=== PATIENT | male | born 1930 | race Caucasian/White ===

== ENCOUNTER 2016-10-28 07:33 | Inpatient (IN) | payer MEDICARE, BC ==
--- NOTE | ~2016-10-28 | OP ---
Record Of Operation [facility] [address] [place]. [address] NAME: MARLEY LYNCH : 31 STATUS : REG REF PAT#: [id number] AGE: 85 ADM/REG DATE : 10/28/16 MR#: [id number] REPORT SERV DATE: 10/28/16 DICTATED BY: MARY GUAJARDO DATE: 10/28/16 REPORT STATUS : Draft TRANSCRIBED BY: MODL DATE: 10/28/16 DATE OF PROCEDURE: 10/28/2016 PROCEDURE: Left heart catheterization, right heart catheterization, left ventriculography, supravalvular aortography, measurement of oximetry and calculation of Lucho cardiac output, measurement of thermodilution cardiac output, coronary angiography. INDICATIONS: Known coronary artery disease, ischemic cardiomyopathy, worsening mitral regurgitation. BROACH SETTER: Mary Guajardo M.D., [facility], [facility]. PROCEDURE NOTE: Informed consent obtained. The patient was brought to catheterization laboratory in the fasting state with renal prophylaxis protocol initiated. Routine sterile prep and drape performed. Monitored sedation administered. 2% Xylocaine with epinephrine infiltrated to right groin. A 7-Israeli sheath to right femoral vein. A 6-Israeli sheath to right femoral artery following anterior wall puncture. A 6-Israeli angled pigtail catheter to the thoracic aorta. Heparin administered intravenously. A 7-Israeli balloon tip Ogden- Miriam catheter advanced into the RVOT and into a pulmonary artery branch over 0.025 wire. Wedge pressures recorded and under pressure recording pullback performed to the pulmonary artery. Thermodilution cardiac output measured. Angled pigtail catheter prolapsed across the aortic valve with mild difficulty. Simultaneous blood aspirated from left ventricle and pulmonary artery for measurement of oximetry and calculation of Lucho cardiac output. Simultaneous left ventricular and wedge pressures were recorded. Under pressure recording right heart catheter pulled back and removed. Left ventriculography performed in LORENZO projection. Pullback to ascending aorta under pressure recording. Supravalvular aortography performed in GUAMANIAN projection and catheter removed. A 6-Israeli JL4 then 6-Israeli JR4 diagnostic catheters were used to cannulate coronary artery ostia with angiography of each vessel performed. All catheters removed. Right common femoral arterial sheath side port angiography performed followed by ProGlide closure of common femoral arterial puncture site. Venous sheath removed. Hemostasis achieved under direct manual pressure. The patient transported to recovery area in satisfactory condition, without immediate complication, anticipating administration of vancomycin. TOTAL CONTRAST: 160 mL Isovue-370. TOTAL X-RAY DOSE: 594 mGy. FINDINGS: HEMODYNAMICS: Central aortic pressure 140/60 mmHg, mean 90 mmHg. Left ventricular pressure 140/15 mmHg. Wedge pressures V-wave 30, mean 18 mmHg. Pulmonary artery pressures 60/20 mmHg, mean 35 mmHg. Right ventricular pressure 60/10 mmHg, thermodilution cardiac output 4.9 L/minute. Oximetry LV 97%, PA 69%. Lucho cardiac output 6.0 L/minute. Pulmonary vascular resistance in excess of 3 Wood units. Mitral valve area by Gorlin formula 1.7-2.1 cm2. Record Of Operation [address] [address] NAME: MARLEY LYNCH : 31 STATUS : REG REF PAT#: [id number] AGE: 85 ADM/REG DATE : 10/28/16 MR#: [id number] REPORT SERV DATE: 10/28/16 DICTATED BY: MARY GUAJARDO DATE: 10/28/16 REPORT STATUS : Draft TRANSCRIBED BY: MARLON DATE: 10/28/16 LEFT VENTRICULOGRAPHY: In LORENZO left ventriculography, global hypocontractility seen with ejection fraction estimated to be in the range of 30%. 3+ mitral regurgitation identified. SUPRAVALVULAR AORTOGRAPHY: In GUAMANIAN aortography, 1+ aortic regurgitation identified. CORONARIES: 1. Left main coronary artery: Medium caliber, medium length vessel with pre-bifurcation tapering to 50%. Diffuse calcification is seen. 2. LAD: Diffusely calcified vessel with proximal 50% stenosis at the origin of a very small diagonal vessel. Widely patent mid LAD stent is seen. Second diagonal vessel was larger than the first and exhibits 50% narrowing. Luminal irregularities identified in the distal LAD, which wraps around the apex of the heart with apical stenosis of 90% in a very small caliber vessel. 3. Ostial LAD: 50% narrowing is seen. 4. Circumflex: Large caliber, angiographically nondominant vessel with diffuse calcification. Two large obtuse marginal branches are seen each exhibiting 50% stenosis in the proximal portions. 5. Right coronary artery: Medium caliber, angiographically dominant vessel terminating as posterior descending artery only. 50% mid vessel narrowing is seen. Pre-bifurcation 70% narrowing is seen. 80% narrowing in two sections of the medium caliber posterior descending artery identified. FINAL IMPRESSION: 1. Mildly decreased LVEF estimated 30% with global pattern. 2. 3+ mitral regurgitation. 3. 1-2+ aortic regurgitation. 4. Moderate pulmonary hypertension with mean PA pressure 35 mmHg and a 3+ Wood units pulmonary vascular resistance. 5. Left main coronary artery 50% bifurcation stenosis. 6. 50% stenosis in the ostium of LAD and proximal LAD. 7. Widely patent mid LAD stent. 8. Second diagonal vessel 50% stenosis. 9. 50% stenoses in each of first and second obtuse marginal branches. 10.50% mid right coronary stenosis. 11.70% right coronary artery bifurcation stenosis. 12.80% stenosis in right posterior descending artery. /BANDARL Mary Guajardo M.D. / [id number] Record Of [address] [address] NAME: MARLEY LYNCH : 31 STATUS : REG REF PAT#: [id number] AGE: 85 ADM/REG DATE : 10/28/16 MR#: [id number] REPORT SERV DATE: 10/28/16 DICTATED BY: MARY GUAJARDO DATE: 10/28/16 REPORT STATUS : Draft TRANSCRIBED BY: MODL DATE: 10/28/16 CC: Aure Huang M.D.
--- NOTE | ~2016-10-28 | OP ---
Record Of Operation [facility] [address] [place]. [address] NAME: MARLEY LYNCH : 31 STATUS : ADM IN PAT#: [id number] AGE: 85 ADM/REG DATE : 10/28/16 MR#: [id number] REPORT SERV DATE: 11/05/16 DICTATED BY: ROJAS ALEXANDER DATE: 11/05/16 REPORT STATUS : Draft TRANSCRIBED BY: MODL DATE: 11/05/16 DATE OF PROCEDURE: 11/05/2016 PREOPERATIVE DIAGNOSES: Congestive heart failure with severe mitral insufficiency and severe three-vessel coronary disease with diminished left ventricular function. POSTOPERATIVE DIAGNOSES: Congestive heart failure with severe mitral insufficiency and severe three-vessel coronary disease with diminished left ventricular function with chronic atrial fibrillation. OPERATIVE PROCEDURE PERFORMED: Urgent mitral valve replacement with a 33 mm pericardial tissue valve, Comer type, ligation of left atrial appendage, coronary artery bypass grafting x3 with endoscopic vein harvest utilizing the left internal mammary artery to the LAD artery, reverse saphenous vein graft from the aorta to the obtuse marginal artery #1 to the posterior descending artery, placement of right common femoral arterial line, and transesophageal echocardiography. OPERATIVE SURGEON: Dr. Rojas Alexander. ANESTHESIA: General endotracheal anesthesia, AA. Chest tubes placed were 2. Pacing wires 2 in the right ventricle and 2 in the right atrium. PERTINENT HISTORY: The patient is an 85-year-old gentleman referred by Dr. Guajardo with known history of mitral valve insufficiency and coronary disease. He now presented with worsening congestive heart failure. OPERATIVE FINDINGS: The patient had bileaflet degeneration of the mitral valve with severely diminished left ventricular function with dilated left ventricle and left atrium. He had very diffuse coronary artery disease. OPERATIVE PROCEDURE: The patient was taken to the operating room and placed in the supine position. Anesthesia was obtained. The patient was prepped and draped in the usual fashion. A serial echocardiogram performed demonstrating severe mitral insufficiency with dilated left atrium and left ventricle and severely diminished left ventricular function. Greater saphenous vein harvested from lower extremities with invasive technique and those wounds closed in a two-layer fashion. Midline structures were made, sternum was divided. The left internal artery was dissected and found to have good flow. Heparin infused and the patient started cardiopulmonary bypass. Cross clamp was applied. Cardioplegia was infused in antegrade and retrograde fashion over a period of 15 minutes. The posterior descending artery was bypassed with reverse saphenous vein graft in an end-to-side fashion. The obtuse marginal artery #1 was bypassed to reverse saphenous vein graft in an end-to-side fashion and the left internal artery was used to bypass the LAD artery in an end-to-side fashion. The left atrium was then opened along the intraatrial groove. Retractor was placed. The left atrial appendage was oversewn with running 4-0 Prolene sutures x2. The mitral valve was examined and found to be with severe bileaflet degeneration. Anterior leaflet was Record Of Operation [facility] [address] [facility] [place]. [address] NAME: MARLEY LYNCH : 31 STATUS : ADM IN [facility]#: [id number] AGE: 85 ADM/REG DATE : 10/28/16 MR#: [id number] REPORT SERV DATE: 11/05/16 DICTATED BY: ROJAS ALEXANDER DATE: 11/05/16 REPORT STATUS : Draft TRANSCRIBED BY: MARLON DATE: 11/05/16 excised. Posterior leaflet was preserved. Two 0 Ethibond pledgeted sutures were placed along the anulus of the mitral valve with the pledgets on the left ventricular side. These were passed through the sewing ring of a 33 mm pericardial tissue valve, Comer type with the valve seated on the anulus. All sutures were tied with a core knot. Left atriotomy was then closed with running 4-0 Prolene suture with the cross clamps then placed. The 2 proximal anastomoses on the ascending aorta. Cross-clamp was removed. Hemostasis was noted. Two pacing wires on the right ventricle, 2 on the right atrium, and 2 chest tubes were placed. Patient warmed to centigrade underwent AV sequential pacing. Right common femoral arterial line was then placed in the right common femoral for the sake of better monitoring of blood pressure as well in case required. The patient had ionotropic support and was commenced and he was allowed to rest on cardiopulmonary bypass for approximately 45 minutes. The patient was then weaned slowly from cardiopulmonary bypass with inotropic support. Protamine sulfate was infused. Hemostasis was adequate. No blood transfusions were required. The sternum was closed with four sternal cables. Soft tissue divided. The patient tolerated the procedure well, was taken back to the ICU in stable condition. LUCILLE/MARLON Rojas Alexander M.D. / [id number] CC: Raymond Guajardo M.D.
--- NOTE | ~2016-10-28 | DS ---
Discharge Summary [facility] [address] [place]. [address] NAME: MARLEY LYNCH : 31 STATUS : DIS IN PAT#: [id number] AGE: 85 ADM/REG DATE : 10/28/16 MR#: [id number] REPORT SERV DATE: 11/21/16 DICTATED BY: MARY BOLAÑOS DATE: 11/21/16 REPORT STATUS : Draft TRANSCRIBED BY: MARLON DATE: 11/21/16 Data Collection from hospitalization DISCHARGE DIAGNOSES: 1. Mitral regurgitation, status post mitral valve replacement. 2. Atrial fibrillation. 3. Coronary artery disease. 4. Ischemic cardiomyopathy. 5. Type 2 diabetes mellitus. 6. Stage 2 chronic kidney disease. 7. Aortic stenosis - mild. 8. Elevated lymphocytes. 9. Hypertension. 10.Dyslipidemia. 11.Pulmonary hypertension. CONSULTATIONS: 1. Jae Marie M.D. 2. Rojas Alexander M.D. 3. Jose Mohamud M.D. 4. Jose Galicia M.D. PROCEDURES: 1. Left heart catheterization, right heart catheterization left ventriculography, supravalvular aortography, measurement of oximetry, calculation of SANJIV cardiac output, measurement of thermodilution cardiac output, and coronary angiography, 10/28/2016. 2. Urgent mitral valve replacement with a 33-mm pericardial tissue valve, Comer type, ligation of left atrial appendage. Coronary artery bypass grafting x3 with endoscopic vein harvest utilizing the left internal mammary artery to the LAD, reverse saphenous vein graft from the aorta to the obtuse marginal artery #1 to the posterior descending artery, placement of a right common femoral arterial line and transesophageal echocardiography, 11/05/2016. PATHOLOGY: 1. Mitral valve - delicate leaflets without inflammation or calcification. 2. 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 DISCHARGE MEDICATIONS: Vitamin D 1000 units daily, Plavix 75 mg daily, [place] 5/325 one tablet every six hours as needed, Prinivil 40 mg daily, Glucophage 500 mg with breakfast and supper, Toprol-XL 50 mg daily, Pravachol 40 mg at bedtime, Hytrin 5 mg at bedtime, and Coumadin 4 mg daily. He was instructed not to continue ascorbic acid and aspirin. CONDITION ON DISCHARGE: Stable. DISPOSITION: The patient was discharged home on a low-cholesterol, low-sodium 1800-calorie cardiac/diabetic diet with activities as instructed. He would follow up with Dr. Rojas Hayden, 12/01/2016. He would follow up with Dr. Mary Bolaños, 11/27/2016. He Discharge Summary [facility] [address] [place]. [address] NAME: MARLEY LYNCH : 31 STATUS : DIS IN PAT#: [id number] AGE: 85 ADM/REG DATE : 10/28/16 MR#: [id number] REPORT SERV DATE: 11/21/16 DICTATED BY: MARY BOLAÑOS DATE: 11/21/16 REPORT STATUS : Draft TRANSCRIBED BY: MODCapo DATE: 11/21/16 would follow up with Dr. Jose Galicia, 12/04/2016. HOSPITAL COURSE: This is an 85-year-old man who had been complaining of shortness of breath. I have been following him closely for valvular heart disease. It was felt that would need to undergo a cardiac catheterization, and he was admitted to the hospital at this time for further evaluation and treatment. Upon admission, he was taken to the cardiac company laborer where he underwent the above-mentioned procedure, he tolerated this well, there were no complications. Cardiac catheterization demonstrated left main coronary artery stenosis with the LAD artery and circumflex arterial disease with disease in the right coronary artery, severely diminished left ventricular function and mild aortic insufficiency, and severe mitral insufficiency. The patient was seen by Dr. Rojas Alexander, echocardiogram had confirmed the severe mitral insufficiency with bileaflet dysfunction and also confirmed aortic insufficiency which was mild. He also has [id number] aortic stenosis of the valve. Surface area was estimated to be 1.5 sq cm. The patient has had a history of atrial fibrillation for about five years. It was felt that he would need to undergo coronary artery bypass grafting. The following day, it was felt that the patient would be a very high-risk surgical candidate. After discussing the procedure and its risks, the patient turned down any surgical intervention. The transesophageal echocardiogram and carotid ultrasound were canceled. He had no new complaints. IV heparin was started. Creatinine level was elevated. On the , the patient had declined surgery and expressed his desire to go home. It was now elected for the transesophageal echocardiogram to be performed. That evening, he had some increased bleeding from his cath site. He had no new complaints. He has a left ventricular ejection fraction of 30%. On the , he was seen by Dr. Jae Marie. He had been asked to see the patient regarding his diabetes, the patient does not take metformin. The patient reports that he does not want to take insulin and only wants to take metformin when he is discharged from the hospital. The patient was currently on level 1 sliding scale insulin, this was increased to level 2. The plan was to resume metformin once the patient was ready to be discharged. Routine labs were going to be checked as well as a hemoglobin A1c. Hemoglobin A1c was 6.4%. He had no chest pain or shortness of breath at rest. The patient now says that he wanted to proceed with mitral valve replacement and coronary artery bypass grafting. He said he was sleeping well. Heparin was continued. On the , he had no complaints. He was in atrial fibrillation on the monitor. Transesophageal echocardiogram was performed. He was eating well. The following day, he had no new complaints. He was seen by Dr. Rojas Alexander for followup consult. The patient has severe mitral insufficiency with what appears to be bileaflet degeneration and severe three-vessel coronary artery disease with left main coronary stenosis. Plans were made to proceed with coronary revascularization as well as mitral valve repair versus replacement. This was going to be a very high-risk surgery. On 11/05/2016, he was taken to the operating room by Dr. Rojas Alexander where he underwent the above-mentioned procedure, he tolerated this well, and there were no complications. Transfusion was ordered for some postop bleeding. He received two units of packed red blood cells. On postop day #1, he was changed to subcu insulin. Hemodynamically and rhythmically stable. Amiodarone was on hold. Aspirin and Plavix were being held. Dobutamine was being weaned. We encouraged him to use incentive spirometry. On 11/07/2016, he was in Discharge Summary [address] [place]. [address] NAME: MARLEY LYNCH : 31 STATUS : DIS IN PAT#: [id number] AGE: 85 ADM/REG DATE : 10/28/16 MR#: [id number] REPORT SERV DATE: 11/21/16 DICTATED BY: MARY BOLAÑOS DATE: 11/21/16 REPORT STATUS : Draft TRANSCRIBED BY: MODL DATE: 11/21/16 ventricular paced rhythm intermittently, hemodynamics were acceptable, Plavix was started, Coumadin was being given. He did not have much of an appetite. On 11/08/2016, dobutamine weaning continued, amiodarone was stopped, he did complain of having a tongue blister. He was ambulatory. White count was 16.9. He was not eating much. Sliding scale insulin continued. BLANKA inhibitor was added. His ischemic cardiomyopathy was compensated. Ellabell catheter was removed. On 11/10/2016, he was still in the Cardiovascular ICU on nicardipine drip. He was now off dobutamine, INR level was 2.4. Lisinopril was increased. Nicardipine was being weaned. Coumadin was continued. Pacing wires were removed. He said he did have some nausea. Chocolate Glucerna was going to be given. He did complain of mouth pain and nausea. The mouth pain improved with magic mouthwash. Lisinopril was increased. Coumadin was held the following day. His wounds looked okay. Chest tubes were removed. On 11/12/2016, he was transferred to the floor. Warfarin was on hold. He underwent diabetes education. He was seen by Dr. Jose Mohamud for evaluation and treatment of rising white blood cell count and postoperative patient. On the day of surgery. His white blood cell count was 9.3. The following day, it increased to 14,000, it had briefly decreased and then went back up to 16.9. It was now 25.7. He no longer has a central line in place. He had no symptoms to suggest an infection prior to coming in. He had no one else who was ill in the household and no unusual environmental exposures. Preoperative liver function tests have been within normal limits. He was recovering quite well from his surgery and no signs were seen of an infection, did not recommend any further infectious disease workup or treatment at this time. Hematology was going to be asked to evaluate. The patient was also seen by Dr. Jose Galicia regarding lymphocytosis. Actually, the lymphocyte count at this time was 19,700. He said he was able to walk with assistance. He has no prior history of any blood disorders. White count is 25,700. The patient had had increasing white blood cell count with proportional lymphocytes. He had no complaints and was actually doing quite well. We were going to go ahead and check a peripheral blood flow cytometry. It was suspected this lymphocytosis was due to a process rather than a hematologic malignancy as he did not have this issue prior to surgery. The following day, he was in atrial fibrillation. He said he felt well. White blood cell count remained elevated. INR level was 3.1. His chest tube was removed. His wounds looked okay. Discharge planning was performed. He was getting stronger. On 11/14/2016, he said he felt well. His lungs remained clear. He had no new complaints. White blood cell count was 27.8. Discharge instructions were given. Due to his improved and stable condition, he was discharged home with the above-stated instructions. Information collected by: Mai Manriquez I submit the above information as my discharge summary. SONDRA/MARLON Mary Bolaños M.D. / [id number] CC: Mary Bolaños M.D. Discharge Summary [address] [address] NAME: MARLEY LYNCH : 31 STATUS : DIS IN PAT#: [id number] AGE: 85 ADM/REG DATE : 10/28/16 MR#: [id number] REPORT SERV DATE: 11/21/16 DICTATED BY: MARY BOLAÑOS DATE: 11/21/16 REPORT STATUS : Draft TRANSCRIBED BY: MODL DATE: 11/21/16 MD Stevie Palacios MD Stephen Martin, M.D. Mark Anderson, M.D. Jose Galicia IV, M.D.
--- NOTE | ~2016-10-28 | CN ---
Consultation Report [address] [place]. [address] NAME: MARLEY LYNCH : 31 STATUS : ADM IN PAT#: [id number] AGE: 85 ADM/REG DATE : 10/28/16 MR#: [id number] REPORT SERV DATE: 11/13/16 DICTATED BY: BRAYDON KAY MARK SANDERS DATE: 11/12/16 REPORT STATUS : Draft TRANSCRIBED BY: MODL DATE: 11/12/16 CONSULTATION NOTE DATE OF CONSULTATION: 11/12/2016 REASON FOR CONSULTATION: Lymphocytosis. Clinician requesting consultation is Dr. Jose Mohamud. HISTORY OF PRESENT ILLNESS: Mr. Lynch is an 85-year-old white male, who is admitted on postop day 7 from CABG and mitral valve replacement. Since admission, he has had a rising white count with a count of 9300 on the day of surgery and increased to 25,700 today. His white count has been predominantly lymphocytes. His absolute lymphocyte count today is 19,700. He denies fevers, chills, muscle aches, cough, pain, nausea, vomiting, diarrhea, or rashes. He feels well. He states he is walking with assistance. He has no prior history of any blood disorders. PAST MEDICAL HISTORY: 1. Coronary artery disease. 2. Paroxysmal AFib. 3. Hypertension. 4. Diabetes. 5. Obstructive sleep apnea. 6. Congestive heart failure. 7. Hyperlipidemia. ALLERGIES: ALLERGIC TO PENICILLIN. SOCIAL HISTORY: He is retired and nonsmoker and does not drink alcohol. FAMILY HISTORY: Not significant for blood disorders. REVIEW OF SYSTEMS: A 12-point review of systems negative except as per HPI. PHYSICAL EXAMINATION: VITAL SIGNS: Blood pressure 137/75, pulse 73, temperature 96.4. GENERAL APPEARANCE: Elderly, in no acute distress. HEENT: Anicteric sclerae. Oropharynx clear. NECK: Supple. No lymphadenopathy. CARDIOVASCULAR: Regular rate and rhythm. Normal S1, S2. LUNGS: Clear to auscultation bilaterally. Fair effort. CHEST: There is a well-healed sternal incision. ABDOMEN: Soft, nontender. No organomegaly. Consultation Report [address] [place]. [address] NAME: MARLEY LYNCH : 31 STATUS : ADM IN PAT#: [id number] AGE: 85 ADM/REG DATE : 10/28/16 MR#: [id number] REPORT SERV DATE: 11/13/16 DICTATED BY: BRAYDON KAY MARK ADAIR DATE: 11/12/16 REPORT STATUS : Draft TRANSCRIBED BY: MARLON DATE: 11/12/16 EXTREMITIES: No clubbing, cyanosis, or edema. LABORATORY: White count 25,700, hemoglobin 9.4 g, platelets 253,000. Creatinine 0.9. ASSESSMENT AND PLAN: Mr. Lynch is an 85-year-old white male, who is postop day 7 from CABG and mitral valve replacement. He has had a state with increasing white blood count with proportional lymphocytes. He has no complaints and is doing quite well. We will go ahead and check a peripheral blood flow cytometry. I suspect this lymphocytosis is due to a process rather than a hematologic malignancy as he did not have this issue prior to surgery. I will defer management of his cardiology surgical team. I will follow along with you. Thank you for the consultation. PATRICIO/MARLON Jose Kay IV, M.D. / [id number] CC: Raymond Guajardo M.D.
--- NOTE | ~2016-10-28 | TEE ---
Transesophageal Echocardiogram [place] [id number] [facility] [place]. [address] NAME: MARLEY LYNCH : 31 STATUS : ADM IN PAT#: [id number] AGE: 85 ADM/REG DATE : 10/28/16 MR#: [id number] REPORT SERV DATE: 11/04/16 DICTATED BY: JC FUENTES DATE: 11/03/16 REPORT STATUS : Draft TRANSCRIBED BY: MODL DATE: 11/03/16 REQUESTING PROVIDERS: Dr. Raymond Guajardo and Dr. Bunny Alexander, Cardiothoracic Surgery. INDICATIONS: An 85-year-old male with exertional shortness of breath and mitral regurgitation. He requested to further assess mitral valve anatomy and regurgitation severity. PROCEDURES PERFORMED: Included 2D, 3D, color, and spectral Doppler. 3D interrogation of the mitral and aortic valve was performed with personal online manual manipulation of the 3D data set. Informed consent was obtained, signed on the chart prior to proceeding. A time-out was performed. Sedation was per Anesthesia. Esophageal intubation was without difficulty. TECH: TD. The overall quality of the study was good. FINDINGS: Valves: 1. The aortic valve is trileaflet. The aortic leaflets are sclerotic with mild-moderately restricted mobility. The aortic valve area by direct 3D planimetry is 1.5 cm2. There is mild eccentric aortic regurgitation. 2. The mitral valve morphology is normal. The mitral leaflets are mildly thickened and there is mild annular calcification. The posterior leaflet mobility is restricted and there is an overriding anterior leaflet. There is severe mitral regurgitation, Susanne IIIb classification. The mitral anulus is mildly dilated. The mitral regurgitation vena contracta 0.7 cm with a PISA radius of 0.85 at Nyquist shift of 37.1. Mitral valve VTI is 170. Peak velocity is 530. The calculated EROA is 0.36 cm2 with a regurgitant volume of 60 mL. The left and right superior pulmonary veins were evaluated and there was fixed systolic flow reversal noted in the right superior pulmonary vein seen both on color and spectral Doppler. This is all suggestive of severe mitral regurgitation as described above. There is no prolapse and no flail segments. 3. The pulmonic valve appears grossly normal with adequate mobility. There is moderate eccentric pulmonic regurgitation. 4. This tricuspid valve morphology is normal with fully mobile leaflets. There is moderate eccentric tricuspid regurgitation. Tricuspid annulus is mildly dilated, 3.9 cm. Chambers: 1. The left atrium is mild-moderately dilated. The left atrial appendage was examined with multiple angulations and was dilated with no thrombus identified. 2. The left ventricle was at the upper limits of normal in size with the visually estimated LVEF of 35%. There is global hypocontractility with more focal basal posterior akinesis. 3. The right atrium appeared mildly dilated. There was no mass thrombus seen. Superior and inferior vena cava appeared normal. 4. The right ventricle is at the upper limits of normal to mildly enlarged in size with Transesophageal Echocardiogram [address] [address] NAME: MARLEY LYNCH : 31 STATUS : ADM IN [facility]#: [id number] AGE: 85 ADM/REG DATE : 10/28/16 MR#: [id number] REPORT SERV DATE: 11/04/16 DICTATED BY: JC FUENTES. DATE: 11/03/16 REPORT STATUS : Draft TRANSCRIBED BY: MODL DATE: 11/03/16 overall low normal systolic function. Other: 1. The interatrial septum was examined with multiple angulations and appeared intact with no evidence of interatrial shunt seen by color Doppler. There is no pericardial effusion. The descending thoracic aorta was normal in caliber with no aneurysm or dissection and there is mild complex atherosclerotic plaquing. COMPLICATIONS: None. CONCLUSION: 1. SEVERE MITRAL REGURGITATION, SUSANNE IIIB CLASSIFICATION, DUE TO AN INFERIOR POSTERIOR WALL MOTION ABNORMALITY, RESTRICTED POSTERIOR LEAFLET, AND OVERRIDING ANTERIOR LEAFLET. 2. MILD-MODERATE AORTIC STENOSIS. MILD REGURGITATION, 3D PLANIMETRY VALVE AREA 1.5 CM2. 3. MODERATE TRICUSPID REGURGITATION WITH A MILDLY DILATED TRICUSPID ANNULUS, 3.9 CM. 4. MODERATE PULMONIC REGURGITATION. 5. BIATRIAL ENLARGEMENT. 6. LV SIZE AT THE UPPER LIMITS OF NORMAL WITH A VISUALLY ESTIMATED LVEF 35%. AEA/MODL Jc Fuentes M.D. / [id number] CC: Aure Huang M.D.
--- NOTE | ~2016-10-28 | CN ---
Consultation Report [facility] [address] [place]. [address] NAME: MARLEY LYNCH : 31 STATUS : ADM IN PAT#: [id number] AGE: 85 ADM/REG DATE : 10/28/16 MR#: [id number] REPORT SERV DATE: 11/12/16 DICTATED BY: EDAURD DAWSON DATE: 11/12/16 REPORT STATUS : Draft TRANSCRIBED BY: MODL DATE: 11/12/16 INFECTIOUS DISEASE CONSULT DATE OF CONSULTATION: REASON FOR REFERRAL: Evaluation and treatment of rising white blood cell count in a postoperative patient. HISTORY OF PRESENT ILLNESS: The patient is an 85-year-old male. He has a history of hyperlipidemia, hypertension, diabetes mellitus, paroxysmal atrial fibrillation. He was previously on anticoagulation for coronary artery disease, obstructive sleep apnea, came in on 10/28/2016 with increasing shortness of breath and signs of congestive heart failure. He was admitted by Dr. Guajardo of Cardiology and underwent a cardiac catheterization which revealed 3+ mitral valve regurg, 1 to 2+ aortic valve regurgitation, as well as extensive coronary artery disease. He was referred to Dr. Rojas Alexander and on 11/07/2016 underwent an elective open heart procedure with mitral valve replacement and coronary artery bypass grafting x3. He received appropriate perioperative antibiotics. He has had no significant fever since the surgery, but has had a rising white blood cell count in the setting of him gradually getting better and better, recovering in a timely manner from the surgery, being able to be transferred to the floor yesterday and almost being well enough to go home except for the fact that he still has a chest tube. His white count had been 9.3 on the day of surgery, was up to 14,000 the next day, briefly fell and then was back up to 16.9 on the , 20.6 on the , and 25.7 today, predominantly lymphocytes with a total lymphocyte count today of 19.7. The patient has had a chest x-ray, which showed no infiltrate. His wound is healing well. He has had no abdominal pain, cramping, or diarrhea. No joint pain. No skin rashes. No longer has a central line. He had no symptoms to suggest an infection prior to coming in. He had no one else ill in his household and no unusual environmental exposures. PAST MEDICAL HISTORY: Otherwise unremarkable. MEDICATIONS: No antimicrobials at present. ALLERGIES: HE IS ALLERGIC TO PENICILLIN, WHICH CAUSES A RASH. 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 He is . His is with him in the room. He is a nonsmoker. He has no history of alcohol or substance abuse. FAMILY HISTORY: Noncontributory. PHYSICAL EXAMINATION: GENERAL: A well-appearing elderly male, in no acute distress. He is alert and oriented x3. Consultation Report [place] [id number] [facility] [place]. [address] NAME: MARLEY LYNCH : 31 STATUS : ADM IN [facility]#: [id number] AGE: 85 ADM/REG DATE : 10/28/16 MR#: [id number] REPORT SERV DATE: 11/12/16 DICTATED BY: EDUARD DAWSON DATE: 11/12/16 REPORT STATUS : Draft TRANSCRIBED BY: MARLON DATE: 11/12/16 VITAL SIGNS: His temperature at present 96 with a pulse 73, respirations 18, blood pressure 144/64. His weight is 77 kg. HEENT: Sclerae clear. No oral lesions. NECK: Supple without meningeal signs or lymphadenopathy. LUNGS: Clear. HEART: Irregular. His sternal incision is healing well without warmth, redness, tenderness or instability. ABDOMEN: Soft, nontender. Positive bowel sounds. No masses or hepatosplenomegaly. Chest tube exit site shows no signs of infection. Peripheral IV shows no warmth or redness in his right upper extremity. His wounds on his legs from the vein graft harvesting are healing well without warmth or redness. He just has some very mild ecchymoses and also in his right groin where the original cardiac cath puncture was done, but there were no signs of infection there. LABORATORY DATA: White blood cell count is as previously described. His hematocrit today 29.6, platelets 253, today's differential 21% segs, 3% bands, 76 lymphocytes. His BUN and creatinine 23 and 0.9. Preop liver function tests were within normal limits. IMPRESSION: An elevated white blood cell count, primarily a lymphocytosis in a patient who is actually recovering quite well from surgery and shows no signs of having an infection, so I doubt that is the cause of the leukocytosis particularly with it being primarily lymphocytes. RECOMMENDATIONS: 1. We would not pursue any further infectious disease workup or treatment at this time. 2. Ask Hematology to evaluate. 3. Follow the patient with you. I appreciate very much your consulting on this patient. STEPHANIE Eduard Dawson M.D. / [id number] CC: Aure Huang M.D.
--- NOTE | ~2016-10-28 | CN ---
Consultation Report [facility] [address] [place]. [address] NAME: MARLEY LYNCH : 31 STATUS : ADM IN PAT#: [id number] AGE: 85 ADM/REG DATE : 10/28/16 MR#: [id number] REPORT SERV DATE: 10/31/16 DICTATED BY: JAE MARIE DATE: 10/31/16 REPORT STATUS : Draft TRANSCRIBED BY: MODL DATE: 10/31/16 DATE OF CONSULTATION: REASON FOR CONSULTATION: Type 2 diabetes mellitus. BRIEF HISTORY OF PRESENT ILLNESS: The patient is an 85-year-old white male, admitted to Cardiovascular Surgery Service for being shortness of breath and having systolic congestive heart failure. Due to multivalvular heart disease and coronary artery disease, this patient underwent a cardiac catheterization, shown to have significant valve disease. Dr. Rojas Alexander has seen the patient in consultation and recommendation was made for valve replacement or repair. This patient is currently awaiting evaluation by Cardiology through a [facility] for preop management of valvular heart disease. Medicine Service was asked to see the patient because the patient has diabetes and he takes metformin. This patient reports, he does not want to take insulin and only wants to take metformin when he is discharged from the hospital. He offers no other problems or complaints. He says he has been doing well, otherwise and is followed by Dr. Elmer Hubbard in [place], [place] as his primary care physician. REVIEW OF SYSTEMS: A 12-point review of systems, otherwise is negative. PAST MEDICAL HISTORY: Significant and extensive for valvular heart disease, coronary artery disease, nonrheumatic mitral valve insufficiency, nonrheumatic aortic valve stenosis, secondary pulmonary hypertension, paroxysmal atrial fibrillation, ischemic cardiomyopathy, history of gastrointestinal hemorrhage in the past, hyperlipidemia, obstructive sleep apnea, declined prior sleep evaluation, type 2 diabetes mellitus. PAST SURGICAL HISTORY: Cardioversion, cardiac catheterization, stomach repair for ulcer rupture, bilateral cataract removals, right knee replaced, and melanoma taken off from the skin. ALLERGIES: TO PENICILLIN. HOME MEDICATIONS: Lisinopril 20 mg once daily, pravastatin 40 mg once daily, Glucophage 500 mg twice daily, Hytrin 5 mg once daily, warfarin 5 mg as directed, vitamin C 500 mg daily, vitamin D 1000 units once daily, aspirin 81 mg once daily. SOCIAL HISTORY: No history of tobacco, alcohol, or illicit substances. Lives at home. Fully functional in all ADLs. FAMILY HISTORY: Reviewed with the patient, but noncontributory for this encounter. PHYSICAL EXAMINATION: GENERAL: White male, lying on the bed, appears to be in no obvious respiratory distress. He is awake and alert. He is oriented. Consultation Report [place] [id number] [place]. [address] NAME: MARLEY LYNCH : 31 STATUS : ADM IN [facility]#: [id number] AGE: 85 ADM/REG DATE : 10/28/16 MR#: [id number] REPORT SERV DATE: 10/31/16 DICTATED BY: JAE MARIE DATE: 10/31/16 REPORT STATUS : Draft TRANSCRIBED BY: MARLON DATE: 10/31/16 VITAL SIGNS: Blood pressure is 125/61, pulse of 70, temp of 97.5, and saturation of 93% on room air. HEENT: Head is normocephalic, atraumatic. Pupils are equal, round, and reactive to light. Extraocular muscles are intact. Sclerae are anicteric. Conjunctivae normal. Oropharynx without lesion. Tongue protrusion midline. Uvula midline. NECK: Supple. No jugular venous distention. No carotid bruits or thyromegaly is appreciated. No lymphadenopathy in the neck is palpable. HEART: Regular rate and rhythm. There is significant 2 to 3 over 6 systolic murmur, best heard in the precordium. PMI just inside the anterior axillary line. LUNGS: Fairly clear to auscultation both anteriorly and posteriorly without rales, rhonchi, wheezing, or consolidation. ABDOMEN: Scaphoid, soft, nontender. Good bowel sounds. EXTREMITIES: Without cyanosis or clubbing. Trace edema around the ankles. NEUROLOGIC: Grossly intact. LABORATORY DATA: Most recent labs; sodium 140, potassium 4.2, chloride 103, bicarb 26, BUN 14, creatinine 0.86, glucose of 126. CBC; white count is 6.8, hemoglobin of 9.4, hematocrit of 31, platelet count is 152,000. INR 1.1. ProTime 14. IMPRESSION: 1. Type 2 diabetes mellitus. Somewhat uncontrolled. 2. Multivalvular heart disease. 3. Arthrosclerotic heart disease. 4. Hypertension. 5. History of paroxysmal atrial fibrillation. 6. Small right groin hematoma post cardiac catheterization and being on IV heparin. PLAN: The patient currently is on level 1 sliding scale. We will increase that to level 2 sliding scale and better manage sugar through hospitalization. Plan will be to resume metformin once the patient is ready to be discharged. We will check routine labs. We will check a hemoglobin A1c. Other management will be deferred to Primary Service. We thank you for this consultation. We will continue to follow. ELYSSA/MARLON Jae Marie M.D. / [id number] CC: Aure Huang M.D.
--- NOTE | ~2016-10-28 | CN ---
Consultation Report [facility] [address] [place]. [address] NAME: MARLEY LYNCH : 31 STATUS : ADM IN PAT#: [id number] AGE: 85 ADM/REG DATE : 10/28/16 MR#: [id number] REPORT SERV DATE: 11/05/16 DICTATED BY: ROJAS ALEXANDER DATE: 11/05/16 REPORT STATUS : Draft TRANSCRIBED BY: MODL DATE: 11/05/16 CONSULTATION DATE OF CONSULTATION: 11/05/2016 PERTINENT HISTORY: The patient is an 85-year-old gentleman, complained of a shortness of breath, and returned to his acquisition consultant, Dr. Raymond Guajardo, who have been following him closely for valvular heart disease. Dr. Guajardo scheduled him for cardiac catheterization and the catheterization demonstrated left main coronary artery stenosis with the LAD artery and circumflex arterial disease, with disease in right coronary artery, severely diminished left ventricular function, mild aortic insufficiency, and severe mitral insufficiency. Echocardiogram had confirmed the severe mitral insufficiency with bileaflet dysfunction, also confirmed an aortic insufficiency to be mild, also had [id number] aortic stenosis of the valve, surface area estimated to be 1.5 cm2. The patient had a history of atrial fibrillation for five years and he was then referred for high-risk surgical intervention to involve repair or placement of mitral valve with coronary bypass grafting. PAST MEDICAL HISTORY: Significant for atrial fibrillation for five years, diabetes mellitus, hypertension, anemia, osteoarthritis, GI hemorrhage, hypercholesterolemia, hypertension, diminished left ventricular function with congestive heart failure. PAST SURGICAL HISTORY: Significant for PCI of the LAD artery in the past. Years ago, he had repair of his stomach ulcer unknown type of operation. He had right knee replacement and bilateral cataracts. SOCIAL HISTORY: He has no tobacco use in the past forty years. FAMILY HISTORY: Noncontributory. REVIEW OF SYSTEMS: Significant for shortness of breath and increased fatigability. PHYSICAL EXAMINATION: VITAL SIGNS: The patient to be afebrile. Blood pressure was 120/70, heart rate was 70, and irregular. GENERAL: He is in no acute distress. Alert and oriented x3. NEUROLOGIC: Intact. NECK: No bruits noted in his neck. No adenopathy of the neck. CHEST: Breath sounds bilaterally without obvious wheezing, rales, or rhonchi. HEART: Irregular rhythm with murmur suggestive of mitral insufficiency. ABDOMEN: Soft and nontender without masses. EXTREMITIES: Warm and dry. GENITOURINARY: Normal examination. Consultation Report [address] [place]. [address] NAME: MARLEY LYNCH : 31 STATUS : ADM IN PAT#: [id number] AGE: 85 ADM/REG DATE : 10/28/16 MR#: [id number] REPORT SERV DATE: 11/05/16 DICTATED BY: ROJAS ALEXANDER DATE: 11/05/16 REPORT STATUS : Draft TRANSCRIBED BY: MARLON DATE: 11/05/16 SKIN: No rash. LABORATORY DATA: Cardiac catheterization demonstrated left main coronary artery stenosis with a series of tight proximal LAD artery stenosis, multiple lesions in the circumflex artery with two obtuse marginal artery branches and the right coronary artery also had diffuse disease proximally. He has single lesion in the posterior descending artery. Left ventricular function severely diminished with severe mitral insufficiency. IMPRESSION: At this time, severe mitral insufficiency with what appears to be bileaflet degeneration and severe three-vessel coronary artery disease with left main coronary stenosis. PLAN: To proceed with coronary revascularization as well as mitral valve repair versus replacement. LUCILLE/MARLON Rojas Alexander M.D. / [id number] CC: Raymond Guajardo M.D.
[~2016-10-28 07:33] MED LIST: ASAB PO; BRILINTA90 MG PO; C5 PO; GLUCOTROL5 PO; GLUCPH PO; HYT5 PO; PACERONE200 MG PO; PRIN20 PO; VITAMIN D1000 UNI1 PO; VITC500 PO; ZOCOR40 PO
[2016-10-28 08:09] LABS: HEMOGLOBIN 10.5 g/dL (13.6-17.8); MEAN CORPUS HGB CONC 31.4 g/dL (32.0-36.0); MEAN CORPUSCULAR HEMOGLOB 27.1 pg (26.0-34.0); MEAN PLATELET VOLUME 11.5 fL (9.2-13.0); RBC DISTRIBUTION WIDTH 15.9 % (12.0-16.0); RED CELL COUNT 3.88 10/6/uL (4.7-6.1)
[2016-10-28 08:10] LABS: HEMATOCRIT 33.4 % (40.0-51.0); MANUAL DIFF YES %; MEAN CORPUSCULAR VOLUME 86.1 fL (80-100); PLATELET COUNT 210 10/3/uL (150-400); WHITE BLOOD CELLS 9.7 10/3/uL (4.5-10.5)
[2016-10-28 08:17] LABS: INTERNATIONAL NORMAL RATI 1.2 UNITS (-)
[2016-10-28 08:19] LABS: PROTIME (NOT ORD) 15.4 SEC (12.0-14.5)
[2016-10-28 08:21] LABS: BUN (BLOOD UREA NITROGEN) 15 MG/DL (6-23); CALCIUM, SERUM 9.2 MG/DL (8.5-10.4); CHLORIDE, SERUM 101 MMOL/L (96-112); CO2 (CARBON DIOXIDE) 27 MMOL/L (24-34); CREATININE 1.08 MG/DL (0.70-1.30); GFR AFRICAN AMERICAN 73 ML/MIN (>=60); GFR NON AFRICAN AMERICAN 63 ML/MIN (>=60); GLUCOSE, SERUM 140 MG/DL (60-99); POTASSIUM, SERUM 4.5 MMOL/L (3.5-5.3); SODIUM, SERUM 139 MMOL/L (135-148)
[2016-10-28 08:41] LABS: BASOPHILS 1 %; LYMPHOCYTES 80 %; LYMPHOCYTES ABSOLUTE (CALC) 7.76 10/3/uL (0.67-4.30); MONOCYTES 2 %; MONOCYTES ABSOLUTE (CALC) 0.19 10/3/uL (0.21-1.20); NEUTROPHILS ABSOLUTE (CALC) 1.65 10/3/uL (2.02-8.40); SEGMENTED NEUTROPHIL (0) 17 %; SMUDGE CELLS FEW; TOTAL NUCLEATED CELLS 100
[2016-10-28 08:42] LABS: ACANTHOCYTES OCC (0-2/OIF); OVALOCYTES 1+ (3-10/OIF) (0-2/OIF); RBC MORPHOLOGY ABN (NORMAL); SCHISTOCYTES OCC (0-2/OIF)
[2016-10-28] MEDS ORDERED: ASAB PO (08:42)
[2016-10-28 08:44] LABS: PLATELET ESTIMATE ADQ (ADEQUATE)
[2016-10-28 09:55] LABS: PATH REVIEW YES
[2016-10-28 09:56] LABS: PATH REVIEW SEE PATHOLOGY REPORT
[2016-10-29 05:00] LABS: BASOPHILS 0.3 %; BASOPHILS ABSOLUTE 0.02 10/3/uL (0.0-0.16); EOSINOPHILS 1.2 %; EOSINOPHILS ABSOLUTE 0.08 10/3/uL (0.0-0.53); HEMATOCRIT 31.1 % (40.0-51.0); HEMOGLOBIN 9.4 g/dL (13.6-17.8); IMMATURE GRANULOCYTES 0.1 %; IMMATURE GRANULOCYTES ABSOLUTE 0.01 10/3/uL (0.0-0.11); LYMPHOCYTES 64.3 %; LYMPHOCYTES ABSOLUTE 4.39 10/3/uL (0.67-4.30); MEAN CORPUS HGB CONC 30.2 g/dL (32.0-36.0); MEAN CORPUSCULAR HEMOGLOB 26.1 pg (26.0-34.0); MEAN CORPUSCULAR VOLUME 86.4 fL (80-100); MEAN PLATELET VOLUME 10.8 fL (9.2-13.0); MONOCYTES 5.1 %; MONOCYTES ABSOLUTE 0.35 10/3/uL (0.21-1.20); NEUTROPHILS ABSOLUTE 1.98 10/3/uL (2.02-8.40); PLATELET COUNT 152 10/3/uL (150-400); RBC DISTRIBUTION WIDTH 15.4 % (12.0-16.0); WHITE BLOOD CELLS 6.8 10/3/uL (4.5-10.5)
[2016-10-29 05:03] LABS: MANUAL DIFF NO %
[2016-10-29 05:10] LABS: BUN (BLOOD UREA NITROGEN) 14 MG/DL (6-23); CALCIUM, SERUM 9.1 MG/DL (8.5-10.4); CHLORIDE, SERUM 103 MMOL/L (96-112); CO2 (CARBON DIOXIDE) 26 MMOL/L (24-34); CREATININE 0.86 MG/DL (0.70-1.30); GFR AFRICAN AMERICAN 92 ML/MIN (>=60); GFR NON AFRICAN AMERICAN 80 ML/MIN (>=60); GLUCOSE, SERUM 126 MG/DL (60-99); POTASSIUM, SERUM 4.2 MMOL/L (3.5-5.3); SODIUM, SERUM 140 MMOL/L (135-148)
[2016-10-29 09:33] LABS: INTERNATIONAL NORMAL RATI 1.2 UNITS (-); PARTIAL THROMBO TIME 35.7 SEC (22.5-37.2); PROTIME (NOT ORD) 15.3 SEC (12.0-14.5)
[2016-10-30 10:51] LABS: INTERNATIONAL NORMAL RATI 1.1 UNITS (-); PARTIAL THROMBO TIME 63.8 SEC (22.5-37.2); PROTIME (NOT ORD) 14.3 SEC (12.0-14.5)
[2016-11-01 01:57] LABS: HEMATOCRIT 31.3 % (40.0-51.0); HEMOGLOBIN 9.7 g/dL (13.6-17.8); MEAN CORPUSCULAR HEMOGLOB 26.4 pg (26.0-34.0); MEAN CORPUSCULAR VOLUME 85.3 fL (80-100); PLATELET COUNT 152 10/3/uL (150-400); RBC DISTRIBUTION WIDTH 15.4 % (12.0-16.0); RED CELL COUNT 3.67 10/6/uL (4.7-6.1); WHITE BLOOD CELLS 9.5 10/3/uL (4.5-10.5)
[2016-11-01 01:58] LABS: MANUAL DIFF YES %
[2016-11-01 02:07] LABS: ALBUMIN 3.5 G/DL (3.5-5.0); BUN (BLOOD UREA NITROGEN) 21 MG/DL (6-23); CALCIUM, SERUM 8.9 MG/DL (8.5-10.4); CHLORIDE, SERUM 102 MMOL/L (96-112); CO2 (CARBON DIOXIDE) 24 MMOL/L (24-34); CREATININE 0.97 MG/DL (0.70-1.30); GFR AFRICAN AMERICAN 83 ML/MIN (>=60); GFR NON AFRICAN AMERICAN 71 ML/MIN (>=60); GLUCOSE, SERUM 132 MG/DL (60-99); PHOSPHORUS, SERUM 4.1 MG/DL (2.5-4.5); POTASSIUM, SERUM 4.3 MMOL/L (3.5-5.3); SODIUM, SERUM 138 MMOL/L (135-148)
[2016-11-01 02:41] LABS: EOSINOPHILS 3 %; EOSINOPHILS ABSOLUTE (CALC) 0.29 10/3/uL (0.0-0.53); LYMPHOCYTES 54 %; LYMPHOCYTES ABSOLUTE (CALC) 5.13 10/3/uL (0.67-4.30); MONOCYTES 5 %; MONOCYTES ABSOLUTE (CALC) 0.48 10/3/uL (0.21-1.20); NEUTROPHILS ABSOLUTE (CALC) 3.61 10/3/uL (2.02-8.40); SEGMENTED NEUTROPHIL (0) 38 %; TOTAL NUCLEATED CELLS 100
[2016-11-01 02:42] LABS: BURR CELLS 1+ (3-10/OIF) (0-2/OIF); ELLIPTOCYTES 1+ (3-10/OIF) (0-2/OIF); PLATELET ESTIMATE ADQ (ADEQUATE)
[2016-11-02 00:40] LABS: HEMATOCRIT 30.3 % (40.0-51.0); HEMOGLOBIN 9.8 g/dL (13.6-17.8); MEAN CORPUS HGB CONC 32.3 g/dL (32.0-36.0); MEAN CORPUSCULAR HEMOGLOB 28.2 pg (26.0-34.0); MEAN CORPUSCULAR VOLUME 87.1 fL (80-100); MEAN PLATELET VOLUME 11.1 fL (9.2-13.0); PLATELET COUNT 162 10/3/uL (150-400); RBC DISTRIBUTION WIDTH 15.7 % (12.0-16.0); RED CELL COUNT 3.48 10/6/uL (4.7-6.1); WHITE BLOOD CELLS 9.8 10/3/uL (4.5-10.5)
[2016-11-02 00:46] LABS: MANUAL DIFF YES %
[2016-11-02 00:55] LABS: BUN (BLOOD UREA NITROGEN) 24 MG/DL (6-23); CALCIUM, SERUM 9.2 MG/DL (8.5-10.4); CHLORIDE, SERUM 102 MMOL/L (96-112); CO2 (CARBON DIOXIDE) 26 MMOL/L (24-34); CREATININE 1.05 MG/DL (0.70-1.30); GFR AFRICAN AMERICAN 75 ML/MIN (>=60); GFR NON AFRICAN AMERICAN 65 ML/MIN (>=60); GLUCOSE, SERUM 127 MG/DL (60-99); POTASSIUM, SERUM 4.4 MMOL/L (3.5-5.3); SODIUM, SERUM 137 MMOL/L (135-148)
[2016-11-02 01:10] LABS: BASOPHILS 1 %; EOSINOPHILS 2 %; LYMPHOCYTES 72 %; LYMPHOCYTES ABSOLUTE (CALC) 7.06 10/3/uL (0.67-4.30); MONOCYTES 1 %; NEUTROPHILS ABSOLUTE (CALC) 2.35 10/3/uL (2.02-8.40); OVALOCYTES 1+ (3-10/OIF) (0-2/OIF); SEGMENTED NEUTROPHIL (0) 24 %; TOTAL NUCLEATED CELLS 100
[2016-11-02 01:11] LABS: BURR CELLS 1+ (3-10/OIF) (0-2/OIF)
[2016-11-03 02:54] LABS: HEMATOCRIT 31.2 % (40.0-51.0); HEMOGLOBIN 9.8 g/dL (13.6-17.8); MANUAL DIFF YES %; MEAN CORPUS HGB CONC 31.4 g/dL (32.0-36.0); MEAN CORPUSCULAR HEMOGLOB 27.4 pg (26.0-34.0); MEAN CORPUSCULAR VOLUME 87.2 fL (80-100); MEAN PLATELET VOLUME 11.6 fL (9.2-13.0); PLATELET COUNT 161 10/3/uL (150-400); RBC DISTRIBUTION WIDTH 15.9 % (12.0-16.0); RED CELL COUNT 3.58 10/6/uL (4.7-6.1); WHITE BLOOD CELLS 10.5 10/3/uL (4.5-10.5)
[2016-11-03 03:18] LABS: BURR CELLS 1+ (3-10/OIF) (0-2/OIF); EOSINOPHILS 3 %; EOSINOPHILS ABSOLUTE (CALC) 0.32 10/3/uL (0.0-0.53); LYMPHOCYTES 70 %; LYMPHOCYTES ABSOLUTE (CALC) 7.35 10/3/uL (0.67-4.30); MONOCYTES 1 %; MONOCYTES ABSOLUTE (CALC) 0.11 10/3/uL (0.21-1.20); NEUTROPHILS ABSOLUTE (CALC) 2.73 10/3/uL (2.02-8.40); OVALOCYTES 1+ (3-10/OIF) (0-2/OIF); SEGMENTED NEUTROPHIL (0) 26 %; TOTAL NUCLEATED CELLS 100
[2016-11-03 03:19] LABS: TEARDROP SHAPED RBCS FEW (3-10/OIF)
[2016-11-03 03:20] LABS: ELLIPTOCYTES 1+ (3-10/OIF) (0-2/OIF); PLATELET ESTIMATE ADQ (ADEQUATE); RBC MORPHOLOGY ABN (NORMAL)
[2016-11-04 16:57] LABS: ASCORBIC ACID (UR NOT ORDER) 20 (NEG); BILIRUBIN, URINE NEGATIVE (NEG); KETONE, URINE NEGATIVE (NEG); LEUKOCYTE ESTERASE(NOT OR NEG (NEG); WBC (NOT ORDERED) (RFLEX) < 1 (0-5)
[2016-11-05 06:09] LABS: PROTIME (NOT ORD) 13.5 SEC (12.0-14.5)
[2016-11-05 06:12] LABS: HEMATOCRIT 31.7 % (40.0-51.0); HEMOGLOBIN 9.9 g/dL (13.6-17.8); MEAN CORPUS HGB CONC 31.2 g/dL (32.0-36.0); MEAN CORPUSCULAR HEMOGLOB 27.3 pg (26.0-34.0); MEAN CORPUSCULAR VOLUME 87.3 fL (80-100); MEAN PLATELET VOLUME 11.2 fL (9.2-13.0); PLATELET COUNT 165 10/3/uL (150-400); RBC DISTRIBUTION WIDTH 16.2 % (12.0-16.0); RED CELL COUNT 3.63 10/6/uL (4.7-6.1); WHITE BLOOD CELLS 9.3 10/3/uL (4.5-10.5)
[2016-11-05 06:13] LABS: MANUAL DIFF YES %
[2016-11-05 06:15] LABS: % IRON SAT 12 % (20-50); A/G RATIO 1.3 (0.7-1.9); ALBUMIN 3.7 G/DL (3.5-5.0); ALKALINE PHOSPHATASE 89 U/L (45-117); BUN (BLOOD UREA NITROGEN) 25 MG/DL (6-23); CALCIUM, SERUM 9.1 MG/DL (8.5-10.4); CHLORIDE, SERUM 102 MMOL/L (96-112); CO2 (CARBON DIOXIDE) 26 MMOL/L (24-34); CREATININE 1.05 MG/DL (0.70-1.30); GFR AFRICAN AMERICAN 75 ML/MIN (>=60); GFR NON AFRICAN AMERICAN 65 ML/MIN (>=60); GLOBULIN 2.8 G/DL (2.5-4.1); GLUCOSE, SERUM 132 MG/DL (60-99); IRON BINDING CAPACITY 413 MCG/DL (250-450); IRON, SERUM 51 MCG/DL (35-150); POTASSIUM, SERUM 4.5 MMOL/L (3.5-5.3); SGOT(AST) 29 U/L (5-40); SGPT(ALT) 18 U/L (5-65); SODIUM, SERUM 136 MMOL/L (135-148); TOTAL BILIRUBIN 0.6 MG/DL (0-1.2); TOTAL PROTEIN 6.5 G/DL (6.0-8.5)
[2016-11-05 06:43] LABS: BAND NEUTROPHILS 2 %; LYMPHOCYTES 71 %; MONOCYTES 6 %; MONOCYTES ABSOLUTE (CALC) 0.56 10/3/uL (0.21-1.20); NEUTROPHILS ABSOLUTE (CALC) 2.14 10/3/uL (2.02-8.40); SEGMENTED NEUTROPHIL (0) 21 %; TOTAL NUCLEATED CELLS 100
[2016-11-05 06:44] LABS: PLATELET ESTIMATE ADQ (ADEQUATE); RBC MORPHOLOGY NORM (NORMAL)
[2016-11-05 13:50] LABS: BE (BASE EXCESS) -2.1 MEQ/L (0 +/- 2.5); CARBOXYHEMOGLOBIN 0.3 % (0-3); HCO3 (ACTUAL BICARBONATE) 22.3 MEQ/L (23-27); HEMOBLOGIN CONTENT 9.7 G/DL (14-18); INSTRUMENT SERIAL # 11843; METHEMOGLOBIN 0.8 % (0-3); MODE SIMV; O2 CONTENT 14.3 VOL% (18-24); OPERATOR ID 18642; PCO2 (CO2 TENSION) 36 MMHG (35-45); PO2 (O2 TENSION) 337 MMHG (79-93); PRESSURE SUPPORT 0 cm.H2O; SAMPLE Arterial; TIDAL VOLUME 650 ML; pH 7.41 (7.37-7.43)
[2016-11-05 14:28] LABS: HEMATOCRIT 27.6 % (40.0-51.0); HEMOGLOBIN 8.7 g/dL (13.6-17.8); PLATELET COUNT 102 10/3/uL (150-400)
[2016-11-05 14:35] LABS: INTERNATIONAL NORMAL RATI 1.5 UNITS (-)
[2016-11-05 14:36] LABS: PARTIAL THROMBO TIME 47.6 SEC (22.5-37.2); PROTIME (NOT ORD) 17.5 SEC (12.0-14.5)
[2016-11-05 14:38] LABS: CALCIUM, SERUM 8.9 MG/DL (8.5-10.4); CHLORIDE, SERUM 108 MMOL/L (96-112); CO2 (CARBON DIOXIDE) 25 MMOL/L (24-34); CREATININE 0.98 MG/DL (0.70-1.30); GFR AFRICAN AMERICAN 82 ML/MIN (>=60); GFR NON AFRICAN AMERICAN 71 ML/MIN (>=60); POTASSIUM, SERUM 4.2 MMOL/L (3.5-5.3)
[2016-11-05 14:43] LABS: BUN (BLOOD UREA NITROGEN) 21 MG/DL (6-23); GLUCOSE, SERUM 83 MG/DL (60-99); SODIUM, SERUM 144 MMOL/L (135-148)
[2016-11-05 22:02] LABS: HEMOGLOBIN 7.9 g/dL (13.6-17.8)
[2016-11-05 22:03] LABS: HEMATOCRIT 23.9 % (40.0-51.0)
[2016-11-05 22:16] LABS: BUN (BLOOD UREA NITROGEN) 21 MG/DL (6-23); CALCIUM, SERUM 9.2 MG/DL (8.5-10.4); CHLORIDE, SERUM 112 MMOL/L (96-112); CO2 (CARBON DIOXIDE) 26 MMOL/L (24-34); CREATININE 1.06 MG/DL (0.70-1.30); GFR AFRICAN AMERICAN 74 ML/MIN (>=60); GFR NON AFRICAN AMERICAN 64 ML/MIN (>=60); GLUCOSE, SERUM 66 MG/DL (60-99); POTASSIUM, SERUM 3.7 MMOL/L (3.5-5.3); SODIUM, SERUM 146 MMOL/L (135-148)
[2016-11-06 03:47] LABS: HEMATOCRIT 26.2 % (40.0-51.0); HEMOGLOBIN 8.3 g/dL (13.6-17.8); MEAN CORPUS HGB CONC 31.7 g/dL (32.0-36.0); MEAN CORPUSCULAR HEMOGLOB 27.1 pg (26.0-34.0); MEAN CORPUSCULAR VOLUME 85.6 fL (80-100); MEAN PLATELET VOLUME 11.3 fL (9.2-13.0); RBC DISTRIBUTION WIDTH 16.1 % (12.0-16.0); RED CELL COUNT 3.06 10/6/uL (4.7-6.1); WHITE BLOOD CELLS 10.8 10/3/uL (4.5-10.5)
[2016-11-06 03:49] LABS: MANUAL DIFF YES %; PLATELET COUNT 165 10/3/uL (150-400)
[2016-11-06 04:07] LABS: BUN (BLOOD UREA NITROGEN) 20 MG/DL (6-23); CALCIUM, SERUM 8.8 MG/DL (8.5-10.4); CHLORIDE, SERUM 114 MMOL/L (96-112); CO2 (CARBON DIOXIDE) 25 MMOL/L (24-34); CREATININE 1.05 MG/DL (0.70-1.30); GFR AFRICAN AMERICAN 75 ML/MIN (>=60); GFR NON AFRICAN AMERICAN 65 ML/MIN (>=60); SODIUM, SERUM 148 MMOL/L (135-148)
[2016-11-06 04:08] LABS: GLUCOSE, SERUM 84 MG/DL (60-99); POTASSIUM, SERUM 4.6 MMOL/L (3.5-5.3)
[2016-11-06 04:47] LABS: BAND NEUTROPHILS 2 %; LYMPHOCYTES 43 %; LYMPHOCYTES ABSOLUTE (CALC) 4.64 10/3/uL (0.67-4.30); MONOCYTES 4 %; MONOCYTES ABSOLUTE (CALC) 0.43 10/3/uL (0.21-1.20); NEUTROPHILS ABSOLUTE (CALC) 5.72 10/3/uL (2.02-8.40); PLATELET ESTIMATE ADQ (ADEQUATE); SEGMENTED NEUTROPHIL (0) 51 %; TOTAL NUCLEATED CELLS 100
[2016-11-06 04:48] LABS: ELLIPTOCYTES 1+ (3-10/OIF) (0-2/OIF)
[2016-11-06 05:01] LABS: BE (BASE EXCESS) -3.7 MEQ/L (0 +/- 2.5); CARBOXYHEMOGLOBIN 0.3 % (0-3); DEVICE NC; HCO3 (ACTUAL BICARBONATE) 20.2 MEQ/L (23-27); HEMOBLOGIN CONTENT 9.4 G/DL (14-18); INSTRUMENT SERIAL # 11843; METHEMOGLOBIN 0.7 % (0-3); O2 CONTENT 13.1 VOL% (18-24); OPERATOR ID 13744; PCO2 (CO2 TENSION) 33 MMHG (35-45); PO2 (O2 TENSION) 128 MMHG (79-93); SAMPLE Arterial; pH 7.41 (7.37-7.43)
[2016-11-06 17:00] LABS: HEMATOCRIT 25.6 % (40.0-51.0); HEMOGLOBIN 8.1 g/dL (13.6-17.8)
[2016-11-06 17:08] LABS: POTASSIUM, SERUM 4.5 MMOL/L (3.5-5.3)
[2016-11-06 19:48] LABS: BUN (BLOOD UREA NITROGEN) 22 MG/DL (6-23); CALCIUM, SERUM 8.4 MG/DL (8.5-10.4); CHLORIDE, SERUM 110 MMOL/L (96-112); CO2 (CARBON DIOXIDE) 23 MMOL/L (24-34); CREATININE 0.89 MG/DL (0.70-1.30); GFR AFRICAN AMERICAN 91 ML/MIN (>=60); GFR NON AFRICAN AMERICAN 79 ML/MIN (>=60); GLUCOSE, SERUM 88 MG/DL (60-99); SODIUM, SERUM 143 MMOL/L (135-148)
[2016-11-06 22:49] LABS: HEMATOCRIT 25.6 % (40.0-51.0); HEMOGLOBIN 8.3 g/dL (13.6-17.8)
[2016-11-06 23:01] LABS: BUN (BLOOD UREA NITROGEN) 25 MG/DL (6-23); CALCIUM, SERUM 8.4 MG/DL (8.5-10.4); CHLORIDE, SERUM 110 MMOL/L (96-112); CO2 (CARBON DIOXIDE) 22 MMOL/L (24-34); CREATININE 0.99 MG/DL (0.70-1.30); GFR AFRICAN AMERICAN 81 ML/MIN (>=60); GFR NON AFRICAN AMERICAN 70 ML/MIN (>=60); POTASSIUM, SERUM 4.6 MMOL/L (3.5-5.3); SODIUM, SERUM 143 MMOL/L (135-148)
[2016-11-06 23:02] LABS: GLUCOSE, SERUM 191 MG/DL (60-99)
[2016-11-07 01:00] LABS: MEAN CORPUS HGB CONC 31.6 g/dL (32.0-36.0); MEAN CORPUSCULAR HEMOGLOB 27.5 pg (26.0-34.0); MEAN CORPUSCULAR VOLUME 86.9 fL (80-100); PLATELET COUNT 122 10/3/uL (150-400); RBC DISTRIBUTION WIDTH 16.9 % (12.0-16.0); RED CELL COUNT 2.91 10/6/uL (4.7-6.1); WHITE BLOOD CELLS 14.1 10/3/uL (4.5-10.5)
[2016-11-07 01:01] LABS: MANUAL DIFF YES %
[2016-11-07 01:24] LABS: BAND NEUTROPHILS 4 %; LYMPHOCYTES 39 %; MONOCYTES 2 %; MONOCYTES ABSOLUTE (CALC) 0.28 10/3/uL (0.21-1.20); NEUTROPHILS ABSOLUTE (CALC) 8.32 10/3/uL (2.02-8.40); SEGMENTED NEUTROPHIL (0) 55 %; TOTAL NUCLEATED CELLS 100
[2016-11-07 01:25] LABS: PLATELET ESTIMATE DEC (ADEQUATE)
[2016-11-07 03:12] LABS: BE (BASE EXCESS) -4.4 MEQ/L (0 +/- 2.5); CARBOXYHEMOGLOBIN 0.3 % (0-3); DEVICE NC; HCO3 (ACTUAL BICARBONATE) 19.9 MEQ/L (23-27); HEMOBLOGIN CONTENT 9.3 G/DL (14-18); INSTRUMENT SERIAL # 11843; METHEMOGLOBIN 0.6 % (0-3); O2 CONTENT 13.1 VOL% (18-24); OPERATOR ID 32193; PCO2 (CO2 TENSION) 34 MMHG (35-45); PO2 (O2 TENSION) 149 MMHG (79-93); SAMPLE Arterial; pH 7.39 (7.37-7.43)
[2016-11-07 03:34] LABS: HEMOGLOBIN 8.3 g/dL (13.6-17.8); MANUAL DIFF YES %; MEAN CORPUS HGB CONC 31.9 g/dL (32.0-36.0); MEAN CORPUSCULAR VOLUME 87.8 fL (80-100); MEAN PLATELET VOLUME 11.9 fL (9.2-13.0); PLATELET COUNT 128 10/3/uL (150-400); RBC DISTRIBUTION WIDTH 16.8 % (12.0-16.0); RED CELL COUNT 2.96 10/6/uL (4.7-6.1); WHITE BLOOD CELLS 14.8 10/3/uL (4.5-10.5)
[2016-11-07 03:39] LABS: BUN (BLOOD UREA NITROGEN) 27 MG/DL (6-23); CALCIUM, SERUM 8.5 MG/DL (8.5-10.4); CHLORIDE, SERUM 110 MMOL/L (96-112); CO2 (CARBON DIOXIDE) 23 MMOL/L (24-34); CREATININE 1.08 MG/DL (0.70-1.30); GFR AFRICAN AMERICAN 73 ML/MIN (>=60); GFR NON AFRICAN AMERICAN 63 ML/MIN (>=60); GLUCOSE, SERUM 225 MG/DL (60-99); POTASSIUM, SERUM 4.8 MMOL/L (3.5-5.3); SODIUM, SERUM 143 MMOL/L (135-148)
[2016-11-07 04:00] LABS: BAND NEUTROPHILS 7 %; LYMPHOCYTES 35 %; LYMPHOCYTES ABSOLUTE (CALC) 5.18 10/3/uL (0.67-4.30); NEUTROPHILS ABSOLUTE (CALC) 9.62 10/3/uL (2.02-8.40); SEGMENTED NEUTROPHIL (0) 58 %; TOTAL NUCLEATED CELLS 100
[2016-11-07 20:19] LABS: HEMATOCRIT 25.2 % (40.0-51.0); HEMOGLOBIN 8.1 g/dL (13.6-17.8); MEAN CORPUS HGB CONC 32.1 g/dL (32.0-36.0); MEAN CORPUSCULAR HEMOGLOB 27.8 pg (26.0-34.0); MEAN CORPUSCULAR VOLUME 86.6 fL (80-100); MEAN PLATELET VOLUME 10.6 fL (9.2-13.0); PLATELET COUNT 123 10/3/uL (150-400); RBC DISTRIBUTION WIDTH 17.1 % (12.0-16.0); RED CELL COUNT 2.91 10/6/uL (4.7-6.1); WHITE BLOOD CELLS 15.7 10/3/uL (4.5-10.5)
[2016-11-07 20:25] LABS: MANUAL DIFF YES %
[2016-11-07 20:35] LABS: CALCIUM, SERUM 8.6 MG/DL (8.5-10.4); CHLORIDE, SERUM 108 MMOL/L (96-112); CO2 (CARBON DIOXIDE) 24 MMOL/L (24-34); CREATININE 1.34 MG/DL (0.70-1.30); GFR AFRICAN AMERICAN 56 ML/MIN (>=60); GFR NON AFRICAN AMERICAN 48 ML/MIN (>=60); POTASSIUM, SERUM 4.2 MMOL/L (3.5-5.3); SODIUM, SERUM 139 MMOL/L (135-148)
[2016-11-07 20:38] LABS: BUN (BLOOD UREA NITROGEN) 39 MG/DL (6-23); GLUCOSE, SERUM 120 MG/DL (60-99)
[2016-11-07 21:08] LABS: ANISOCYTOSIS 1+ (5-10/OIF) (0-5/OIF); BAND NEUTROPHILS 1 %; LYMPHOCYTES 43 %; LYMPHOCYTES ABSOLUTE (CALC) 6.75 10/3/uL (0.67-4.30); MONOCYTES 4 %; MONOCYTES ABSOLUTE (CALC) 0.63 10/3/uL (0.21-1.20); NEUTROPHILS ABSOLUTE (CALC) 8.32 10/3/uL (2.02-8.40); PLATELET ESTIMATE SLT DEC (ADEQUATE); SEGMENTED NEUTROPHIL (0) 52 %; TOTAL NUCLEATED CELLS 100
[2016-11-07 21:10] LABS: BURR CELLS 1+ (3-10/OIF) (0-2/OIF); RBC MORPHOLOGY ABN (NORMAL)
[2016-11-08 04:01] LABS: HEMATOCRIT 26.1 % (40.0-51.0); HEMOGLOBIN 8.4 g/dL (13.6-17.8); MEAN CORPUS HGB CONC 32.2 g/dL (32.0-36.0); MEAN CORPUSCULAR HEMOGLOB 28.3 pg (26.0-34.0); MEAN CORPUSCULAR VOLUME 87.9 fL (80-100); MEAN PLATELET VOLUME 11.8 fL (9.2-13.0); PLATELET COUNT 131 10/3/uL (150-400); RBC DISTRIBUTION WIDTH 17.1 % (12.0-16.0); RED CELL COUNT 2.97 10/6/uL (4.7-6.1); WHITE BLOOD CELLS 14.8 10/3/uL (4.5-10.5)
[2016-11-08 04:03] LABS: MANUAL DIFF YES %
[2016-11-08 04:06] LABS: INTERNATIONAL NORMAL RATI 1.5 UNITS (-)
[2016-11-08 04:30] LABS: ANISOCYTOSIS 1+ (5-10/OIF) (0-5/OIF); BAND NEUTROPHILS 2 %; BUN (BLOOD UREA NITROGEN) 38 MG/DL (6-23); CALCIUM, SERUM 8.6 MG/DL (8.5-10.4); CHLORIDE, SERUM 106 MMOL/L (96-112); CO2 (CARBON DIOXIDE) 24 MMOL/L (24-34); GFR AFRICAN AMERICAN 64 ML/MIN (>=60); GFR NON AFRICAN AMERICAN 55 ML/MIN (>=60); HYPOCHROMIA 1+ (3-10/OIF) (0-2/OIF); LYMPHOCYTES 46 %; LYMPHOCYTES ABSOLUTE (CALC) 6.81 10/3/uL (0.67-4.30); MICROCYTES 1+ (5-10/OIF) (0-5/OIF); MONOCYTES 7 %; MONOCYTES ABSOLUTE (CALC) 1.04 10/3/uL (0.21-1.20); NEUTROPHILS ABSOLUTE (CALC) 6.96 10/3/uL (2.02-8.40); PLATELET ESTIMATE SLT DEC (ADEQUATE); SEGMENTED NEUTROPHIL (0) 45 %; SODIUM, SERUM 141 MMOL/L (135-148); TOTAL NUCLEATED CELLS 100
[2016-11-08 04:32] LABS: GLUCOSE, SERUM 85 MG/DL (60-99)
[2016-11-09 03:36] LABS: HEMOGLOBIN 8.5 g/dL (13.6-17.8); MEAN CORPUS HGB CONC 32.7 g/dL (32.0-36.0); MEAN CORPUSCULAR HEMOGLOB 28.7 pg (26.0-34.0); MEAN CORPUSCULAR VOLUME 87.8 fL (80-100); MEAN PLATELET VOLUME 11.3 fL (9.2-13.0); PLATELET COUNT 140 10/3/uL (150-400); RBC DISTRIBUTION WIDTH 17.1 % (12.0-16.0); RED CELL COUNT 2.96 10/6/uL (4.7-6.1); WHITE BLOOD CELLS 16.9 10/3/uL (4.5-10.5)
[2016-11-09 03:37] LABS: MANUAL DIFF YES %
[2016-11-09 03:44] LABS: CALCIUM, SERUM 8.7 MG/DL (8.5-10.4); CHLORIDE, SERUM 107 MMOL/L (96-112); CO2 (CARBON DIOXIDE) 21 MMOL/L (24-34); CREATININE 1.09 MG/DL (0.70-1.30); GFR AFRICAN AMERICAN 72 ML/MIN (>=60); GFR NON AFRICAN AMERICAN 62 ML/MIN (>=60); POTASSIUM, SERUM 4.7 MMOL/L (3.5-5.3); SODIUM, SERUM 140 MMOL/L (135-148)
[2016-11-09 03:45] LABS: BUN (BLOOD UREA NITROGEN) 42 MG/DL (6-23); GLUCOSE, SERUM 145 MG/DL (60-99)
[2016-11-09 03:46] LABS: PROTIME (NOT ORD) 22.4 SEC (12.0-14.5)
[2016-11-09 03:59] LABS: LYMPHOCYTES 42 %; MONOCYTES 6 %; MONOCYTES ABSOLUTE (CALC) 1.01 10/3/uL (0.21-1.20); NEUTROPHILS ABSOLUTE (CALC) 8.79 10/3/uL (2.02-8.40); SEGMENTED NEUTROPHIL (0) 52 %; TOTAL NUCLEATED CELLS 100
[2016-11-09 04:00] LABS: ANISOCYTOSIS 1+ (5-10/OIF) (0-5/OIF); PLATELET ESTIMATE SLT DEC (ADEQUATE)
[2016-11-09 04:01] LABS: OVALOCYTES 1+ (3-10/OIF) (0-2/OIF)
[2016-11-09 17:29] LABS: POTASSIUM, SERUM 4.8 MMOL/L (3.5-5.3)
[2016-11-10 03:40] LABS: HEMATOCRIT 25.6 % (40.0-51.0); HEMOGLOBIN 8.1 g/dL (13.6-17.8); MEAN CORPUS HGB CONC 31.6 g/dL (32.0-36.0); MEAN CORPUSCULAR HEMOGLOB 27.3 pg (26.0-34.0); MEAN CORPUSCULAR VOLUME 86.2 fL (80-100); MEAN PLATELET VOLUME 11.1 fL (9.2-13.0); PLATELET COUNT 169 10/3/uL (150-400); RBC DISTRIBUTION WIDTH 16.7 % (12.0-16.0); RED CELL COUNT 2.97 10/6/uL (4.7-6.1); WHITE BLOOD CELLS 16.3 10/3/uL (4.5-10.5)
[2016-11-10 03:42] LABS: MANUAL DIFF YES %
[2016-11-10 03:46] LABS: INTERNATIONAL NORMAL RATI 2.4 UNITS (-)
[2016-11-10 03:52] LABS: CALCIUM, SERUM 8.2 MG/DL (8.5-10.4); CHLORIDE, SERUM 104 MMOL/L (96-112); CO2 (CARBON DIOXIDE) 22 MMOL/L (24-34); CREATININE 0.95 MG/DL (0.70-1.30); GFR AFRICAN AMERICAN 85 ML/MIN (>=60); GFR NON AFRICAN AMERICAN 73 ML/MIN (>=60); GLUCOSE, SERUM 123 MG/DL (60-99); POTASSIUM, SERUM 4.4 MMOL/L (3.5-5.3); SODIUM, SERUM 137 MMOL/L (135-148)
[2016-11-10 03:53] LABS: BUN (BLOOD UREA NITROGEN) 37 MG/DL (6-23)
[2016-11-10 04:52] LABS: EOSINOPHILS 5 %; EOSINOPHILS ABSOLUTE (CALC) 0.82 10/3/uL (0.0-0.53); LYMPHOCYTES 56 %; LYMPHOCYTES ABSOLUTE (CALC) 9.13 10/3/uL (0.67-4.30); MONOCYTES 6 %; MONOCYTES ABSOLUTE (CALC) 0.98 10/3/uL (0.21-1.20); NEUTROPHILS ABSOLUTE (CALC) 5.38 10/3/uL (2.02-8.40); SEGMENTED NEUTROPHIL (0) 33 %; TOTAL NUCLEATED CELLS 100
[2016-11-10 04:53] LABS: ANISOCYTOSIS 1+ (5-10/OIF) (0-5/OIF)
[2016-11-10 04:54] LABS: ELLIPTOCYTES 1+ (3-10/OIF) (0-2/OIF); PLATELET ESTIMATE ADQ (ADEQUATE)
[2016-11-11 04:03] LABS: INTERNATIONAL NORMAL RATI 2.8 UNITS (-); PROTIME (NOT ORD) 29.5 SEC (12.0-14.5)
[2016-11-11 04:10] LABS: HEMATOCRIT 26.2 % (40.0-51.0); HEMOGLOBIN 8.3 g/dL (13.6-17.8); MEAN CORPUS HGB CONC 31.7 g/dL (32.0-36.0); MEAN CORPUSCULAR HEMOGLOB 27.7 pg (26.0-34.0); MEAN CORPUSCULAR VOLUME 87.3 fL (80-100); MEAN PLATELET VOLUME 10.6 fL (9.2-13.0); PLATELET COUNT 183 10/3/uL (150-400); RBC DISTRIBUTION WIDTH 16.7 % (12.0-16.0); WHITE BLOOD CELLS 20.6 10/3/uL (4.5-10.5)
[2016-11-11 04:11] LABS: MANUAL DIFF YES %
[2016-11-11 04:17] LABS: BUN (BLOOD UREA NITROGEN) 34 MG/DL (6-23); CALCIUM, SERUM 8.2 MG/DL (8.5-10.4); CHLORIDE, SERUM 100 MMOL/L (96-112); CO2 (CARBON DIOXIDE) 25 MMOL/L (24-34); CREATININE 1.12 MG/DL (0.70-1.30); GFR AFRICAN AMERICAN 70 ML/MIN (>=60); GFR NON AFRICAN AMERICAN 60 ML/MIN (>=60); GLUCOSE, SERUM 129 MG/DL (60-99); POTASSIUM, SERUM 4.9 MMOL/L (3.5-5.3); SODIUM, SERUM 136 MMOL/L (135-148)
[2016-11-11 04:23] LABS: EOSINOPHILS 2 %; EOSINOPHILS ABSOLUTE (CALC) 0.41 10/3/uL (0.0-0.53); LYMPHOCYTES 60 %; LYMPHOCYTES ABSOLUTE (CALC) 12.36 10/3/uL (0.67-4.30); MONOCYTES 2 %; MONOCYTES ABSOLUTE (CALC) 0.41 10/3/uL (0.21-1.20); NEUTROPHILS ABSOLUTE (CALC) 7.42 10/3/uL (2.02-8.40); PLATELET ESTIMATE ADQ (ADEQUATE); RBC MORPHOLOGY NORM (NORMAL); SEGMENTED NEUTROPHIL (0) 36 %; SMUDGE CELLS MOD; TOTAL NUCLEATED CELLS 100
[2016-11-12 04:44] LABS: INTERNATIONAL NORMAL RATI 3.1 UNITS (-); PROTIME (NOT ORD) 31.6 SEC (12.0-14.5)
[2016-11-12 04:53] LABS: HEMOGLOBIN 9.4 g/dL (13.6-17.8); MEAN CORPUS HGB CONC 31.8 g/dL (32.0-36.0); MEAN CORPUSCULAR HEMOGLOB 27.2 pg (26.0-34.0); MEAN CORPUSCULAR VOLUME 85.8 fL (80-100); MEAN PLATELET VOLUME 10.5 fL (9.2-13.0); RBC DISTRIBUTION WIDTH 16.7 % (12.0-16.0); RED CELL COUNT 3.45 10/6/uL (4.7-6.1)
[2016-11-12 04:55] LABS: CALCIUM, SERUM 8.6 MG/DL (8.5-10.4); CHLORIDE, SERUM 99 MMOL/L (96-112); CO2 (CARBON DIOXIDE) 24 MMOL/L (24-34); GFR AFRICAN AMERICAN 91 ML/MIN (>=60); GFR NON AFRICAN AMERICAN 78 ML/MIN (>=60); GLUCOSE, SERUM 114 MG/DL (60-99); HEMATOCRIT 29.6 % (40.0-51.0); MANUAL DIFF YES %; PLATELET COUNT 253 10/3/uL (150-400); POTASSIUM, SERUM 4.8 MMOL/L (3.5-5.3); SODIUM, SERUM 134 MMOL/L (135-148); WHITE BLOOD CELLS 25.7 10/3/uL (4.5-10.5)
[2016-11-12 04:59] LABS: BUN (BLOOD UREA NITROGEN) 23 MG/DL (6-23)
[2016-11-12 05:33] LABS: BAND NEUTROPHILS 3 %; LYMPHOCYTES 76 %; LYMPHOCYTES ABSOLUTE (CALC) 19.53 10/3/uL (0.67-4.30); NEUTROPHILS ABSOLUTE (CALC) 6.17 10/3/uL (2.02-8.40); PLATELET ESTIMATE ADQ (ADEQUATE); SEGMENTED NEUTROPHIL (0) 21 %; SMUDGE CELLS MOD; TOTAL NUCLEATED CELLS 100
[2016-11-12 05:34] LABS: ANISOCYTOSIS 1+ (5-10/OIF) (0-5/OIF); BURR CELLS 1+ (3-10/OIF) (0-2/OIF); OVALOCYTES 1+ (3-10/OIF) (0-2/OIF); POIKILOCYTOSIS 1+ (5-10/OIF) (0-5/OIF); TEARDROP SHAPED RBCS OCC (0-2/OIF)
[2016-11-13 05:59] LABS: INTERNATIONAL NORMAL RATI 3.1 UNITS (-); PROTIME (NOT ORD) 31.3 SEC (12.0-14.5)
[2016-11-14 07:08] LABS: HEMATOCRIT 27.1 % (40.0-51.0); HEMOGLOBIN 8.7 g/dL (13.6-17.8); MEAN CORPUS HGB CONC 32.1 g/dL (32.0-36.0); MEAN CORPUSCULAR HEMOGLOB 28.1 pg (26.0-34.0); MEAN CORPUSCULAR VOLUME 87.4 fL (80-100); MEAN PLATELET VOLUME 9.4 fL (9.2-13.0); PLATELET COUNT 302 10/3/uL (150-400)
[2016-11-14 07:10] LABS: INTERNATIONAL NORMAL RATI 2.4 UNITS (-)
[2016-11-14 07:11] LABS: PROTIME (NOT ORD) 25.7 SEC (12.0-14.5)
[2016-11-14 07:23] LABS: CALCIUM, SERUM 7.9 MG/DL (8.5-10.4); CHLORIDE, SERUM 99 MMOL/L (96-112); CO2 (CARBON DIOXIDE) 27 MMOL/L (24-34); CREATININE 0.85 MG/DL (0.70-1.30); GFR AFRICAN AMERICAN 93 ML/MIN (>=60); GFR NON AFRICAN AMERICAN 80 ML/MIN (>=60); GLUCOSE, SERUM 128 MG/DL (60-99); POTASSIUM, SERUM 4.1 MMOL/L (3.5-5.3); SODIUM, SERUM 135 MMOL/L (135-148)
[2016-11-14 07:27] LABS: MANUAL DIFF YES %; WHITE BLOOD CELLS 27.8 10/3/uL (4.5-10.5)
[2016-11-14 07:36] LABS: BUN (BLOOD UREA NITROGEN) 12 MG/DL (6-23)
[2016-11-14 07:58] LABS: ANISOCYTOSIS 1+ (5-10/OIF) (0-5/OIF); BAND NEUTROPHILS 2 %; HYPOCHROMIA 1+ (3-10/OIF) (0-2/OIF); LYMPHOCYTES 75 %; LYMPHOCYTES ABSOLUTE (CALC) 20.85 10/3/uL (0.67-4.30); MACROCYTES 1+ (5-10/OIF) (0-5/OIF); MONOCYTES 2 %; MONOCYTES ABSOLUTE (CALC) 0.56 10/3/uL (0.21-1.20); NEUTROPHILS ABSOLUTE (CALC) 6.39 10/3/uL (2.02-8.40); PLATELET ESTIMATE ADQ (ADEQUATE); SEGMENTED NEUTROPHIL (0) 21 %; TOTAL NUCLEATED CELLS 100
[2016-11-14] MEDS ORDERED: PLAVIX PO (14:32)
[2016-11-14] MEDS ORDERED: LISINOPRIL40 MG PO (14:33)
[2016-11-14] MEDS ORDERED: TOPXL50 PO (14:34)
[2016-11-14] MEDS ORDERED: NORCO1 TA1 PO (14:35)
[2016-11-14] MEDS ORDERED: C5 (14:36)
[2017-05-05] MEDS ORDERED: L40 PO (15:53)
[2017-05-05] MEDS ORDERED: CARDU4 PO (15:53)
[2017-05-05] MEDS ORDERED: COUMADIN4 MG (15:56)
[2017-05-05] MEDS ORDERED: ASAB PO (15:57)
[2017-05-05] MEDS ORDERED: K-TABS10 MEQ PO (15:57)
== END 2016-11-14 16:39 | disposition home or self-care (01) | DRG 217 ==
LOC: CORLMH 07:33 → SSU1 07:42 → 5NO 10-29 20:25 → SDC/OF 11-05 08:19 → CVICU 11-05 12:43 → 5NO 11-11 16:24
PROVIDERS: Anesthesiology; Hospitalist; Internal Medicine; Internal Medicine Cardiovascular Disease; Thoracic Surgery (Cardiothoracic Vascular Surgery)
PROC: 4A023N7 Measurement of Cardiac Sampling and Pressure, Left Heart, Percutaneous Approach (ICD-10-PCS; principal; 2016-10-28)
PROC: 02RG08Z Replacement of Mitral Valve with Zooplastic Tissue, Open Approach (ICD-10-PCS; 2016-10-28)
PROC: B2111ZZ Fluoroscopy of Multiple Coronary Arteries using Low Osmolar Contrast (ICD-10-PCS; 2016-10-28)
PROC: 02100Z9 Bypass Coronary Artery, One Artery from Left Internal Mammary, Open Approach (ICD-10-PCS; 2016-10-28)
PROC: B2151ZZ Fluoroscopy of Left Heart using Low Osmolar Contrast (ICD-10-PCS; 2016-10-28)
PROC: 021109W Bypass Coronary Artery, Two Arteries from Aorta with Autologous Venous Tissue, Open Approach (ICD-10-PCS; 2016-11-05)
PROC: 5A1221Z Performance of Cardiac Output, Continuous (ICD-10-PCS; 2016-11-05)
PROC: 02570ZK Destruction of Left Atrial Appendage, Open Approach (ICD-10-PCS; 2016-11-05)
PROC: B246ZZ4 Ultrasonography of Right and Left Heart, Transesophageal (ICD-10-PCS; 2016-11-05)
PROC: 30233R1 Transfusion of Nonautologous Platelets into Peripheral Vein, Percutaneous Approach (ICD-10-PCS; 2016-11-05)
PROC: 30233N1 Transfusion of Nonautologous Red Blood Cells into Peripheral Vein, Percutaneous Approach (ICD-10-PCS; 2016-11-05)
PROC: 30233K1 Transfusion of Nonautologous Frozen Plasma into Peripheral Vein, Percutaneous Approach (ICD-10-PCS; 2016-11-05)
DX: I25.10 Atherosclerotic heart disease of native coronary artery without angina pectoris (principal); D62 Acute posthemorrhagic anemia; E11.22 Type 2 diabetes mellitus with diabetic chronic kidney disease; I13.0 Hypertensive heart and chronic kidney disease with heart failure and stage 1 through stage 4 chronic kidney disease, or unspecified chronic kidney disease; I50.22 Chronic systolic (congestive) heart failure; I97.630 Postprocedural hematoma of a circulatory system organ or structure following a cardiac catheterization; I27.2 Other secondary pulmonary hypertension; I25.5 Ischemic cardiomyopathy; I08.0 Rheumatic disorders of both mitral and aortic valves; N18.3 Chronic kidney disease, stage 3 (moderate); I48.0 Paroxysmal atrial fibrillation; G47.33 Obstructive sleep apnea (adult) (pediatric); Z88.0 Allergy status to penicillin; Z79.82 Long term (current) use of aspirin; Z96.651 Presence of right artificial knee joint; D72.820 Lymphocytosis (symptomatic)
CPT/HCPCS: 31720; 36415; 36600; 71010; 71020; 76376; 80048; 80053; 80069; 81001; 82330; 82803; 82805; 82947; 82962; 83036; 83540; 83550; 83735; 84132; 84295; 85014; 85018; 85025; 85049; 85347; 85610; 85730; 86850; 86900; 86901; 86920; 86965; 87641; 88184; 88185; 88305; 88367; 93005; 93312; 93320; 93325; 93460; 93567; 94002; 94640; 94660; 94770; 99152; 99153; A9270-GY; C1713; C1725; C1757; C1760; C1769; C1894; J0690; J1644; J1940; J2150; J2250; J2370; J2405; J2440; J2720; J3010; J3370; J3475; J3480; P9012; P9016; P9035; P9045; P9047; P9059; Q9967